=== PATIENT | female | born 2000 | race Two or more races ===

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

== ENCOUNTER → 2022-02-25 | Emergency (ER) | payer MEDICAID, OTHER ==
[~2022-02-25] VITALS: Ht 170.2 cm; Wt 90.7 kg
[2022-02-25 16:50] VITALS: BP 115/77
== END | disposition left against medical advice (07) ==
LOC: EDUNIT# 16:29 → ER 16:39 → EDBD 16:39
DX: R42 Dizziness and giddiness (principal); R53.1 Weakness; Z53.21 Procedure and treatment not carried out due to patient leaving prior to being seen by health care provider
CPT/HCPCS: 93005

== ENCOUNTER 2024-04-23 01:40 | Emergency (ER) | payer MEDICAID ==
[~2024-04-23] VITALS: Ht 165.1 cm; Wt 100.0 kg
[2024-04-23 02:39] LABS: Urine Bacteria FEW /hpf (None Seen); Urine Blood Negative /uL (Negative); Urine Clarity Clear (Clear); Urine Color Light-Yellow (Yellow); Urine Mucus FEW (None Seen); Urine Protein, UAD Negative (Negative); Urine Specific Gravity 1.012 (1.001-1.035); Urine Urobilinogen Normal (Negative); Urine WBC 2 /hpf (0 - 5)
[2024-04-23 02:55] LABS: Basophils # (auto) 0.2 10 ^3/uL (0-0.2); Basophils % (auto) 1.3 % (0.0-2.0); Eosinophils # (auto) 0.2 10 ^3/uL (0-0.8); Eosinophils % (auto) 1.5 % (0.0-7.0); Hematocrit 40.3 % (36.0-46.0); Hemoglobin 13.5 g/dL (12.2-16.2); Lymphocytes # (auto) 6.8 10 ^3/uL (0.4-5.4); Lymphocytes % (auto) 44.8 % (10.0-50.0); Mean Corpuscular Hemoglobin 32.3 pg (28.0-32.0); Mean Corpuscular Hgb Conc. 33.6 g/dL (32.0-36.0); Mean Corpuscular Volume 96.1 fL (80.0-100.0); Monocytes % (auto) 6.6 % (0.0-12.0); Neutrophils % (auto) 45.8 % (37.0-80.0); Nucleated Red Blood Cells % 0.1 %; Red Blood Cells 4.19 10^6/uL (4.0-5.20); Red Cell Distribution Width 14.9 % (11.8-14.3); White Blood Cell 15.2 10^3/uL (4.4-10.8)
[2024-04-23 03:10] LABS: Alanine Aminotransferase 57 U/L (7-40); Albumin 4.3 g/dL (3.2-4.8); Alkaline Phosphatase 69 U/L (46-116); Anion Gap 6 (5-15); Aspartate Aminotransferase 20 U/L (13-40); BUN/Creatinine Ratio 7.4 (10.0-20.0); Bilirubin, Total 0.3 mg/dL (0.2-1.0); Blood Urea Nitrogen 5 mg/dL (9-23); Calcium 9.9 mg/dL (8.7-10.4); Carbon Dioxide 24 mmol/L (20-30); Chloride 106 mmol/L (98-107); Glucose 90 mg/dL (74-106); Potassium 3.8 mmol/L (3.5-5.1); Sodium 136 mmol/L (136-145)
[2024-04-23] MEDS: ONDANSETRON HCL 4 MG/2 ML VIAL IV ONE ×3 (04:17→08:33)
[2024-04-23] MEDS: SODIUM CHLORIDE 0.9% 1,000 ML IV ONE (04:18)
[2024-04-23] MEDS: ACETAMINOPHEN 325 MG TAB PO ONE (05:16)
[2024-04-23 08:23] VITALS: PULSE 63; RESP 15; O2SAT 99
[2024-04-23] MEDS: ACETAMINOPHEN 500 MG TAB PO ONE (08:30)
[2024-04-23] MEDS: MORPHINE SULFATE 4 MG/ML SYR/VIAL IV ONE (08:34)
[2024-04-23] MEDS: PANTOPRAZOLE 40 MG/10 ML VIAL INJ IV ONE (09:28)
[2024-04-23 09:31] VITALS: BP 106/62; PULSE 62; RESP 14; O2SAT 98
== END 2024-04-23 10:11 | disposition home or self-care (01) ==
LOC: ER 01:40
DX: O26.891 Other specified pregnancy related conditions, first trimester (principal); R10.11 Right upper quadrant pain; R10.2 Pelvic and perineal pain; Z88.0 Allergy status to penicillin; Z88.1 Allergy status to other antibiotic agents; Z3A.01 Less than 8 weeks gestation of pregnancy
CPT/HCPCS: 36415; 76705; 76801; 76817; 80053; 81001; 83690; 84702; 85025; 96361; 96374; 96375; 96376; 99285; J2270; J2405; J7030

== ENCOUNTER 2024-04-25 22:39 | Emergency (ER) | payer MEDICAID ==
[~2024-04-25] VITALS: Ht 165.1 cm; Wt 101.3 kg
[2024-04-25 23:01] VITALS: BP 125/77; PULSE 72; RESP 16; O2SAT 100
[2024-04-25 23:36] LABS: Urine Bacteria FEW /hpf (None Seen); Urine Blood Negative /uL (Negative); Urine Clarity Clear (Clear); Urine Color Yellow (Yellow); Urine Mucus FEW (None Seen); Urine Protein, UAD Negative (Negative); Urine Urobilinogen 2 mg/dL (Negative); Urine WBC 1 /hpf (0 - 5)
== END 2024-04-26 06:19 | disposition left against medical advice (07) ==
LOC: ER 22:39
DX: O21.9 Vomiting of pregnancy, unspecified (principal); O26.891 Other specified pregnancy related conditions, first trimester; R10.9 Unspecified abdominal pain; Z3A.01 Less than 8 weeks gestation of pregnancy; Z53.21 Procedure and treatment not carried out due to patient leaving prior to being seen by health care provider
CPT/HCPCS: 81001